=== PATIENT | female | born 2005 | race Caucasian/White ===

== ENCOUNTER 2023-11-18 00:53 | Day surgery (SDC) | payer OTHER ==
[2023-11-18] MEDS ORDERED: hydrALAZINE 20 MG/ML VIAL SLOW IVP PRN (01:21)
[2023-11-18 01:25] VITALS: BMI 22.3
[2023-11-18 02:29] LABS: Bilirubin Neg (Negative); Blood, Urine Negative (Negative); Clarity Clear (Clear); Glucose, Urine (Dipstick) Normal (Negative); Ketone, Urine Negative (Negative); Leukocyte 500 (Negative); Nitrite Negative (Negative); Protein, Urine (Dipstick) Negative (Neg-Trace); Urobilinogen Normal mg/dL (Less than 2); pH, Urine 6.5 (5.0-9.0)
[2023-11-18] MEDS ORDERED: Acetaminophen 500 MG TAB PO SCH (02:30)
[2023-11-18 02:40] LABS: RBC/HPF 0-3 HPF (0-3)
[2023-11-18 02:41] LABS: Bacteria/HPF 1+ HPF (None Seen)
== END 2023-11-18 04:45 | disposition home or self-care (01) ==
LOC: CSHLD/OP 00:53
PROVIDERS: ATTEND Obstetrics & Gynecology
DX: O47.03 False labor before 37 completed weeks of gestation, third trimester (principal); Z3A.36 36 weeks gestation of pregnancy; Z79.899 Other long term (current) drug therapy
CPT/HCPCS: 81001

== ENCOUNTER 2023-11-18 21:01 | Day surgery (SDC) | payer OTHER ==
[2023-11-18] MEDS ORDERED: hydrALAZINE 20 MG/ML VIAL SLOW IVP PRN (21:12)
[2023-11-18 21:32] VITALS: BMI 22.3
[2023-11-18 21:49] LABS: Fetal Membranes Rupture No Membranes Rupture (No Rupture)
== END 2023-11-18 23:00 | disposition home or self-care (01) ==
LOC: CSHLD/OP 21:01
PROVIDERS: ATTEND Obstetrics & Gynecology
DX: O36.8130 Decreased fetal movements, third trimester, not applicable or unspecified (principal); O99.013 Anemia complicating pregnancy, third trimester; Z79.899 Other long term (current) drug therapy; Z3A.36 36 weeks gestation of pregnancy; O47.03 False labor before 37 completed weeks of gestation, third trimester
CPT/HCPCS: 81001; 84112; 87480; 87510; 87660

== ENCOUNTER 2024-08-31 14:18 | Emergency (ER) | payer BC, OTHER ==
[2024-08-31] MEDS ORDERED: Ondansetron PF 4 MG/2 ML Vial ONE (14:59)
[2024-08-31 15:33] LABS: ALT (SGPT) 10 U/L (8-55); AST (SGOT) 17 U/L (5-34); Albumin 4.7 g/dL (3.5-5.0); Alkaline Phosphatase 81 U/L (40-100); Anion Gap 17 mmol/L (10-20); BUN (Urea Nitrogen) 8 mg/dL (7.0-18.7); Bilirubin, Total 1.3 mg/dL (0.2-1.2); Calc. Creatinine Clearance 0 mL/min (70-130); Calcium 9.6 mg/dL (7.8-10.44); Carbon Dioxide 20 mmol/L (22-29); Chloride 102 mmol/L (98-107); Estimated GFR 110; Globulin 3.8 g/dL (2.4-3.5); Glucose 92 mg/dL (70-105); Potassium 3.6 mmol/L (3.5-5.1); Protein, Total 8.5 g/dL (6.0-8.3); Sodium 135 mmol/L (136-145)
[2024-08-31] MEDS ORDERED: Ketorolac Tromethamine 30 MG (1 mL) VIAL ONE (15:40)
[2024-08-31 16:34] LABS: Pregnancy Test - Urine (BHCG) Negative (Negative); Pregu Control Background? CLEAR/WHITE (CLR/WHITE); Pregu Control Bar Appear? YES (CONTROL BAR); Specific Gravity 1.015 (1.002-1.036)
== END 2024-08-31 16:28 | disposition home or self-care (01) ==
LOC: CSHERS 14:18
DX: E86.0 Dehydration (principal); R11.2 Nausea with vomiting, unspecified
CPT/HCPCS: 36415; 80053; 81025; 96361; 96374; 96375; J1885; J2405